=== PATIENT | male | born 1945 | race Caucasian/White ===

== ENCOUNTER 2018-04-01 09:00 | Outpatient (CLI) | payer OTHER | END 2018-04-01 09:15 | disposition home or self-care (01) | LOC: TOM 09:00 | DX: R19.5 Other fecal abnormalities (principal); Z79.01 Long term (current) use of anticoagulants; K63.5 Polyp of colon ==

== ENCOUNTER 2020-01-05 07:49 | Outpatient (CLI) | payer OTHER | END 2020-01-05 07:58 | disposition home or self-care (01) | LOC: TOM 07:49 | PROVIDERS: ATTEND Internal Medicine Gastroenterology | DX: Z12.11 Encounter for screening for malignant neoplasm of colon (principal); R19.5 Other fecal abnormalities; Z79.01 Long term (current) use of anticoagulants; K80.80 Other cholelithiasis without obstruction ==